=== PATIENT | female | born 1995 | race Caucasian/White ===

== ENCOUNTER 2023-11-09 12:48 | Inpatient (IN) | payer OTHER, SELFPAY ==
[2023-11-09 13:02] VITALS: BMI 21.3
[2023-11-09 13:04] VITALS: BP 124/81; PULSE 87; RESP 16; TEMP 36.9; O2SAT 98
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
--- NOTE | 2023-11-09 16:27 | PC.NURSE ---
This short story writer unable to complete med rec due to patient not having picked up medication since 04/2023 from [facility]. Pt had reported that she uses [facility], however, they report a further back roller picker than 04/2023.
[2023-11-09 20:00] VITALS: BP 134/83; PULSE 93; TEMP 36.8; O2SAT 98
[2023-11-09] MEDS: valACYclovir HCL 500 MG TABLET PO (20:59)
[2023-11-10 08:00] VITALS: BP 100/55; PULSE 65; RESP 18; TEMP 36.9; O2SAT 98
[2023-11-10 08:53] LABS: Estimated Average Glucose 97 mg/dL
[2023-11-10 09:06] LABS: Cholesterol 161 mg/dL (<200); HDL Cholesterol 48 mg/dL (>40); LDL Cholesterol Calculated 96 mg/dL (<100); Magnesium 1.9 mg/dL (1.6-2.6); Triglycerides 89 mg/dL (<150)
[2023-11-10] MEDS: valACYclovir HCL 500 MG TABLET PO ×2 (09:11→22:45)
[2023-11-10 09:17] LABS: Free T4 (Free Thyroxine) 0.97 ng/dL (0.71-1.85); Thyroid Stimulating Hormone 1.46 uIU/mL (0.32-4.0)
[2023-11-10 09:33] LABS: Folate 5.4 ng/mL (> or = 4.0); Vitamin B12 467 pg/mL (200-900)
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
[2023-11-10 20:00] VITALS: BP 124/71; PULSE 68; RESP 16; TEMP 36.8; O2SAT 99
[2023-11-11 08:00] VITALS: BP 97/60; PULSE 63; RESP 18; TEMP 36.9; O2SAT 98
[2023-11-11] MEDS: valACYclovir HCL 500 MG TABLET PO ×2 (08:40→21:51)
[2023-11-11] MEDS: hydrOXYzine HCL 25 MG TABLET PO (09:09)
--- NOTE | 2023-11-11 14:42 | HO.PSYCHPN ---
Subjective Subjective Date of Service: 11/11/23 Reason For Visit: PTSD, Anxiety, ADHD Subjective Notes: Conditional Voluntary Healthcare Proxy: No Guardianship: No Medical Problems Affecting Mental Status: No Interim History: Review of meds, treatment plan. Pt not wanting any medications at this time. Finds hydroxyzine helpful. Asking for a referral to a [facility] in [place] and assistance in application for disability services and community services connection. Medication Compliance: Yes Side effects from medications: No Attending Groups: Yes Review of Systems Acute medical concerns: No Medical Review of Systems: unchanged Review of Systems Review of Systems Yes all other systems are reviewed and are negative Mental Status Exam Mental Status Exam Patient Appearance: Appropriate Patient Orientation: Person, Place, Time and Situation Level of Consciousness: Alert Patient Behavior: Talkative and Good Eye Contact Mood Description: Depressed Affect Description: Flat Patient Cognition Impaired: No Ability to Follow Directions: Good Speech Pattern: Spontaneous Speech Memory Description: Episodic Impaired Hallucinations: None Delusions: Not Present Perceptual Disturbances: Depersonalization and Derealization Thought Process: Rumination Thought Content: positive for Circumstantial and positive for Perseveration Judgement: Fair Diagnostics Vital Signs (24Hr): Vital Signs - 24 hr 11/10/23 20:00 11/11/23 08:00 Temperature 98.2 F 98.4 F Pulse Rate 68 63 Respiratory Rate 16 18 Blood Pressure 124/71 97/60 Pulse Oximetry 99 98 Oxygen Delivery Method Room Air Room Air BMI result Body Mass Index 21.3 Labs Labs: Laboratory Results - last 48 hr 11/10/23 08:13 Estimat Average Glucose 97 Hemoglobin A1c % 5.0 Magnesium 1.9 Triglycerides 89 Cholesterol 161 LDL Cholesterol, Calc 96 HDL Cholesterol 48 Vitamin B12 467 Folate 5.4 TSH 1.46 Free T4 0.97 Medications Medications Current Medications Acetaminophen (Acetaminophen 325 Mg Tablet) 650 mg PO Q6H PRN PRN Reason: Headache/Pain Mild Scale (1-3) Al Hydroxide/Mg Hydroxide (Magnesium Hydrox/Alum Hydrox 30 Ml Oral.Susp) 30 ml PO Q6H PRN PRN Reason: Heartburn/Nausea Hydroxyzine HCl (Hydroxyzine Hcl 25 Mg Tablet) 25 mg PO Q6H PRN PRN Reason: Anxiety Last Admin: 11/11/23 09:09 Dose: 25 mg Magnesium Hydroxide (Milk Of Magnesia 30 Ml Oral.Susp) 30 ml PO DAILY PRN PRN Reason: Constipation Nicotine (Nicotine 21 Mg Patch.Td24) 21 mg TRANSDERMA DAILY PRN PRN Reason: nicotine cravings Nicotine Polacrilex (Nicotine Polacrilex 2 Mg Gum) 4 mg BUCCAL Q2H PRN PRN Reason: Nicotine Cravings Trazodone HCl (Trazodone Hcl 50 Mg Tablet) 50 mg PO BEDTIME MRX1 PRN PRN Reason: Insomnia Valacyclovir HCl (Valacyclovir Hcl 500 Mg Tablet) 500 mg PO BID POLO Stop: 11/12/23 20:59 Last Admin: 11/11/23 08:40 Dose: 500 mg Allergies Allergies Allergy/AdvReac Type Severity Reaction Status Date / Time No Known Allergies Allergy Unverified 12/22/19 19:08 [No Known Allergies*] Assessment & Plan Assessment & Plan (1) PTSD (post-traumatic stress disorder): Status: Acute Code(s): F43.10 - Post-traumatic stress disorder, unspecified (2) Mood disorder: Status: Acute Code(s): F39 - Unspecified mood [affective] disorder (3) Polysubstance use disorder: Status: Acute Code(s): F19.90 - Other psychoactive substance use, unspecified, uncomplicated Plan PTSD, Mood Disorder, Polysubstance Use Disorder. Plan: Admit, CV, 15 minute checks Full milieu therapy Collateral Contact Discharge planning 11/11/23: Discharge planning. Reason for continued inpatient stay Substantial Risk for: rapid decompensation Time Spent With Patient Time: Total time managing care of this patient today ____ minutes.
[2023-11-11 20:00] VITALS: BP 88/51; PULSE 70; RESP 16; TEMP 37.1; O2SAT 98
[2023-11-12 07:00] VITALS: BMI 21.2
[2023-11-12 08:00] VITALS: BP 101/57; PULSE 59; RESP 17; TEMP 36.1; O2SAT 99
[2023-11-12] MEDS: valACYclovir HCL 500 MG TABLET PO (08:41)
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
[2023-11-12 20:00] VITALS: BP 130/77; PULSE 73; TEMP 36.1; O2SAT 97
[2023-11-13 08:00] VITALS: BP 104/68; PULSE 62; RESP 16; TEMP 36.3; O2SAT 99
[2023-11-13] MEDS: hydrOXYzine HCL 25 MG TABLET PO (11:15)
[2023-11-13] MEDS: OLANZapine 5 MG TABLET PO ×2 (13:33→21:21)
--- NOTE | 2023-11-13 16:46 | HO.PSYCHPN ---
Subjective Subjective Date of Service: 11/13/23 Reason For Visit: PTSD, Anxiety, ADHD Subjective Notes: Conditional Voluntary Healthcare Proxy: No Guardianship: No Medical Problems Affecting Mental Status: No Interim History: Reporting anxiety to team. Today, asks for medication for anxiety. Olanzapine ordered, scheduled and prn. Pt accepted a trial dose from the team. Medication Compliance: Yes Side effects from medications: No Attending Groups: No Review of Systems Acute medical concerns: No Medical Review of Systems: unchanged Review of Systems Review of Systems Yes all other systems are reviewed and are negative Mental Status Exam Mental Status Exam Patient Appearance: Appropriate Patient Orientation: Person, Place, Time and Situation Level of Consciousness: Alert Patient Behavior: Talkative, Anxious and Good Eye Contact Mood Description: Depressed Affect Description: Flat Patient Cognition Impaired: No Ability to Follow Directions: Good Speech Pattern: Spontaneous Speech Memory Description: Episodic Impaired Hallucinations: None Delusions: Not Present Perceptual Disturbances: Depersonalization and Derealization Thought Process: Rumination Thought Content: positive for Circumstantial and positive for Perseveration Judgement: Fair Diagnostics Vital Signs (24Hr): Vital Signs - 24 hr 11/12/23 20:00 11/13/23 08:00 Temperature 97.0 F 97.3 F Pulse Rate 73 62 Respiratory Rate 16 Blood Pressure 130/77 104/68 Pulse Oximetry 97 99 Oxygen Delivery Method Room Air Room Air BMI result Body Mass Index 21.2 Medications Medications Current Medications Acetaminophen (Acetaminophen 325 Mg Tablet) 650 mg PO Q6H PRN PRN Reason: Headache/Pain Mild Scale (1-3) Al Hydroxide/Mg Hydroxide (Magnesium Hydrox/Alum Hydrox 30 Ml Oral.Susp) 30 ml PO Q6H PRN PRN Reason: Heartburn/Nausea Hydroxyzine HCl (Hydroxyzine Hcl 25 Mg Tablet) 25 mg PO Q6H PRN PRN Reason: Anxiety Last Admin: 11/13/23 11:15 Dose: 25 mg Magnesium Hydroxide (Milk Of Magnesia 30 Ml Oral.Susp) 30 ml PO DAILY PRN PRN Reason: Constipation Nicotine (Nicotine 21 Mg Patch.Td24) 21 mg TRANSDERMA DAILY PRN PRN Reason: nicotine cravings Nicotine Polacrilex (Nicotine Polacrilex 2 Mg Gum) 4 mg BUCCAL Q2H PRN PRN Reason: Nicotine Cravings Olanzapine (Olanzapine 5 Mg Tablet) 5 mg PO BID POLO Last Admin: 11/13/23 13:33 Dose: 5 mg Olanzapine (Olanzapine 5 Mg Tablet) 5 mg PO Q4H PRN PRN Reason: Anxiety Trazodone HCl (Trazodone Hcl 50 Mg Tablet) 50 mg PO BEDTIME MRX1 PRN PRN Reason: Insomnia Valacyclovir HCl (Valacyclovir Hcl 500 Mg Tablet) 500 mg PO BID POLO Allergies Allergies Allergy/AdvReac Type Severity Reaction Status Date / Time No Known Allergies Allergy Unverified 12/22/19 19:08 [No Known Allergies*] Assessment & Plan Assessment & Plan (1) PTSD (post-traumatic stress disorder): Status: Acute Code(s): F43.10 - Post-traumatic stress disorder, unspecified (2) Mood disorder: Status: Acute Code(s): F39 - Unspecified mood [affective] disorder (3) Polysubstance use disorder: Status: Acute Code(s): F19.90 - Other psychoactive substance use, unspecified, uncomplicated Plan PTSD, Mood Disorder, Polysubstance Use Disorder. Plan: Admit, CV, 15 minute checks Full milieu therapy Collateral Contact Discharge planning 11/11/23: Discharge planning. 11/12/23: Encourage treatment. 11/13/23: Olanzapine trial for anxiety Asking to discharge to a retirement Considering precipitants to admission, this may not be acceptable given a questionable level of risk Reason for continued inpatient stay Substantial Risk for: rapid decompensation Time Spent With Patient Time: Total time managing care of this patient today ____ minutes.
[2023-11-13 20:00] VITALS: BP 96/53; PULSE 75; RESP 16; TEMP 36.3; O2SAT 96
[2023-11-13] MEDS: valACYclovir HCL 500 MG TABLET PO (21:21)
[2023-11-14 08:00] VITALS: BP 82/51; PULSE 65; RESP 16; TEMP 36.2; O2SAT 97
[2023-11-14] MEDS: valACYclovir HCL 500 MG TABLET PO ×2 (08:36→21:16)
[2023-11-14] MEDS: OLANZapine 5 MG TABLET PO ×2 (08:36→21:16)
--- NOTE | 2023-11-14 10:14 | HO.PSYCHPN ---
Subjective Subjective Date of Service: 11/14/23 Reason For Visit: PTSD, Anxiety, ADHD Interim History: Anxiety medications are helping. I am feeling less overwhelmed. Reports she is feeling better. Denies SI/HI/AVH. Compliant with treatment. Social with peers and visible in the milieu. Review of Systems Review of Systems General: No fevers, malaise, unintentional weight loss HEENT: No blurred vision, diplopia. No sore throat, nasal congestion, rhinorrhea, sinus pain, ear pain Cardiovascular: No chest pain, palpitations, or leg edema Respiratory: No shortness of breath, wheezing, cough GI: No abdominal pain, nausea, vomiting, diarrhea, constipation, melena, hematochezia : No dysuria, hematuria, increased urinary frequency, decreased urinary output ELECTRONIC BENCH TECHNICIAN: +herpes lesion MSK: No myalgia, back pain Neuro: No headaches, weakness, paresthesias Skin: No rashes or lesions Yes all other systems are reviewed and are negative Mental Status Exam Mental Status Exam Patient Appearance: Appropriate Patient Orientation: Person, Place, Time and Situation Level of Consciousness: Alert Patient Behavior: Talkative, Anxious and Good Eye Contact Mood Description: Depressed Affect Description: Flat Patient Cognition Impaired: No Ability to Follow Directions: Good Speech Pattern: Spontaneous Speech Memory Description: Episodic Impaired Diagnostics Vital Signs (24Hr): Vital Signs - 24 hr 11/13/23 20:00 Temperature 97.3 F Pulse Rate 75 Respiratory Rate 16 Blood Pressure 96/53 L Pulse Oximetry 96 Oxygen Delivery Method Room Air BMI result Body Mass Index 21.2 Medications Medications Current Medications Acetaminophen (Acetaminophen 325 Mg Tablet) 650 mg PO Q6H PRN PRN Reason: Headache/Pain Mild Scale (1-3) Al Hydroxide/Mg Hydroxide (Magnesium Hydrox/Alum Hydrox 30 Ml Oral.Susp) 30 ml PO Q6H PRN PRN Reason: Heartburn/Nausea Hydroxyzine HCl (Hydroxyzine Hcl 25 Mg Tablet) 25 mg PO Q6H PRN PRN Reason: Anxiety Last Admin: 11/13/23 11:15 Dose: 25 mg Magnesium Hydroxide (Milk Of Magnesia 30 Ml Oral.Susp) 30 ml PO DAILY PRN PRN Reason: Constipation Nicotine (Nicotine 21 Mg Patch.Td24) 21 mg TRANSDERMA DAILY PRN PRN Reason: nicotine cravings Nicotine Polacrilex (Nicotine Polacrilex 2 Mg Gum) 4 mg BUCCAL Q2H PRN PRN Reason: Nicotine Cravings Olanzapine (Olanzapine 5 Mg Tablet) 5 mg PO BID [facility] Last Admin: 11/14/23 08:36 Dose: 5 mg Olanzapine (Olanzapine 5 Mg Tablet) 5 mg PO Q4H PRN PRN Reason: Anxiety Trazodone HCl (Trazodone Hcl 50 Mg Tablet) 50 mg PO BEDTIME MRX1 PRN PRN Reason: Insomnia Valacyclovir HCl (Valacyclovir Hcl 500 Mg Tablet) 500 mg PO BID [facility] Last Admin: 11/14/23 08:36 Dose: 500 mg Allergies Allergies Allergy/AdvReac Type Severity Reaction Status Date / Time No Known Allergies Allergy Unverified 12/22/19 19:08 [No Known Allergies*] Assessment & Plan Assessment & Plan (1) PTSD (post-traumatic stress disorder): Status: Acute Code(s): F43.10 - Post-traumatic stress disorder, unspecified (2) Mood disorder: Status: Acute Code(s): F39 - Unspecified mood [affective] disorder (3) Polysubstance use disorder: Status: Acute Code(s): F19.90 - Other psychoactive substance use, unspecified, uncomplicated Plan PTSD, Mood Disorder, Polysubstance Use Disorder. Plan: Admit, CV, 15 minute checks Full milieu therapy Collateral Contact Discharge planning 11/11/23: Discharge planning. 11/12/23: Encourage treatment. 11/13/23: Olanzapine trial for anxiety Asking to discharge to a [facility] Considering precipitants to admission, this may not be acceptable given a questionable level of risk 11/13: continue current management and treatment plan. Reason for continued inpatient stay Substantial Risk for: harm to others, inability to function and rapid decompensation Time Spent With Patient Time: Total time managing care of this patient today ____ minutes.
[2023-11-14] MEDS: Acetaminophen 325 MG TABLET 650 MG PO (17:48)
[2023-11-14 19:58] VITALS: BP 129/85; PULSE 88; RESP 14; TEMP 36.6; O2SAT 98
[2023-11-15 07:46] VITALS: BP 90/52; PULSE 58; RESP 16; TEMP 36.3; O2SAT 98
[2023-11-15 08:00] VITALS: BP 90/52; PULSE 58; RESP 16; TEMP 36.3
[2023-11-15] MEDS: OLANZapine 5 MG TABLET PO ×2 (08:48→22:17)
[2023-11-15] MEDS: valACYclovir HCL 500 MG TABLET PO ×2 (08:49→22:17)
--- NOTE | 2023-11-15 10:25 | P.PNPSI_ITS ---
Subjective Subjective Date of Service: 11/15/23 Reason For Visit: PTSD, Anxiety, ADHD Interim History: Anxiety medications are helping. When I take them I don't have racing thoughts and they go down. Complaining of waking with a stiff neck and upper back. Slept wrong. Left side. Heat helps. Wondering about a Lidocaine patch at night if pain continues. Will order. Reports she is feeling better. Denies SI/HI/AVH. Compliant with treatment. Social with peers and visible in the milieu. Review of Systems Review of Systems General: No fevers, malaise, unintentional weight loss HEENT: No blurred vision, diplopia. No sore throat, nasal congestion, rhinorrhea, sinus pain, ear pain Cardiovascular: No chest pain, palpitations, or leg edema Respiratory: No shortness of breath, wheezing, cough GI: No abdominal pain, nausea, vomiting, diarrhea, constipation, melena, hematochezia : No dysuria, hematuria, increased urinary frequency, decreased urinary output FITNESS AND WELLNESS INSTRUCTOR: +herpes lesion MSK: No myalgia, back pain Neuro: No headaches, weakness, paresthesias Skin: No rashes or lesions Yes all other systems are reviewed and are negative Mental Status Exam Mental Status Exam Patient Appearance: Appropriate Patient Orientation: Person, Place, Time and Situation Level of Consciousness: Alert Patient Behavior: Talkative, Anxious and Good Eye Contact Mood Description: Depressed Affect Description: Flat Patient Cognition Impaired: No Ability to Follow Directions: Good Speech Pattern: Spontaneous Speech Memory Description: Episodic Impaired Diagnostics Vital Signs (24Hr): Vital Signs - 24 hr 11/14/23 19:58 11/15/23 07:46 Temperature 97.8 F 97.4 F Pulse Rate 88 58 Respiratory Rate 14 16 Blood Pressure 129/85 90/52 L Pulse Oximetry 98 98 Oxygen Delivery Method Room Air Room Air BMI result Body Mass Index 21.2 Medications Medications Current Medications Acetaminophen (Acetaminophen 325 Mg Tablet) 650 mg PO Q6H PRN PRN Reason: Headache/Pain Mild Scale (1-3) Last Admin: 11/14/23 17:48 Dose: 650 mg Al Hydroxide/Mg Hydroxide (Magnesium Hydrox/Alum Hydrox 30 Ml Oral.Susp) 30 ml PO Q6H PRN PRN Reason: Heartburn/Nausea Hydroxyzine HCl (Hydroxyzine Hcl 25 Mg Tablet) 25 mg PO Q6H PRN PRN Reason: Anxiety Last Admin: 11/13/23 11:15 Dose: 25 mg Magnesium Hydroxide (Milk Of Magnesia 30 Ml Oral.Susp) 30 ml PO DAILY PRN PRN Reason: Constipation Nicotine (Nicotine 21 Mg Patch.Td24) 21 mg TRANSDERMA DAILY PRN PRN Reason: nicotine cravings Nicotine Polacrilex (Nicotine Polacrilex 2 Mg Gum) 4 mg BUCCAL Q2H PRN PRN Reason: Nicotine Cravings Olanzapine (Olanzapine 5 Mg Tablet) 5 mg PO BID [facility] Last Admin: 11/15/23 08:48 Dose: 5 mg Olanzapine (Olanzapine 5 Mg Tablet) 5 mg PO Q4H PRN PRN Reason: Anxiety Trazodone HCl (Trazodone Hcl 50 Mg Tablet) 50 mg PO BEDTIME MRX1 PRN PRN Reason: Insomnia Valacyclovir HCl (Valacyclovir Hcl 500 Mg Tablet) 500 mg PO BID [facility] Last Admin: 11/15/23 08:49 Dose: 500 mg Allergies Allergies Allergy/AdvReac Type Severity Reaction Status Date / Time No Known Allergies Allergy Unverified 12/22/19 19:08 [No Known Allergies*] Assessment & Plan Assessment & Plan (1) PTSD (post-traumatic stress disorder): Status: Acute Code(s): F43.10 - Post-traumatic stress disorder, unspecified (2) Mood disorder: Status: Acute Code(s): F39 - Unspecified mood [affective] disorder (3) Polysubstance use disorder: Status: Acute Code(s): F19.90 - Other psychoactive substance use, unspecified, uncomplicated Plan PTSD, Mood Disorder, Polysubstance Use Disorder. Plan: Admit, CV, 15 minute checks Full milieu therapy Collateral Contact Discharge planning 11/11/23: Discharge planning. 11/12/23: Encourage treatment. 11/13/23: Olanzapine trial for anxiety Asking to discharge to a [facility] Considering precipitants to admission, this may not be acceptable given a questionable level of risk 11/13: continue current management and treatment plan. 11/14: Lidocaine patch to neck. continue current management and treatment plan. Reason for continued inpatient stay Substantial Risk for: inability to function and rapid decompensation Time Spent With Patient Time: Total time managing care of this patient today ____ minutes.
[2023-11-15] MEDS: hydrOXYzine HCL 25 MG TABLET PO (14:48)
[2023-11-15 20:00] VITALS: BP 99/56; PULSE 64; RESP 16; TEMP 36.2; O2SAT 99
[2023-11-15] MEDS: Lidocaine 4 % Patch ADH..PATCH 1 PATCH TRANSDERMA (21:01)
[2023-11-16 08:00] VITALS: BP 98/57; PULSE 70; RESP 16; TEMP 36.9; O2SAT 97
[2023-11-16] MEDS: hydrOXYzine HCL 25 MG TABLET PO (08:52)
[2023-11-16] MEDS: OLANZapine 5 MG TABLET PO (08:52)
[2023-11-16] MEDS: valACYclovir HCL 500 MG TABLET PO (08:52)
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
== END 2023-11-16 11:57 | disposition home or self-care (01) | DRG 755 ==
PROVIDERS: Admitting Provider Clinical Nurse Specialist Psychiatric/Mental Health, Adult; PCP Nurse Practitioner; Visit Provider Clinical Nurse Specialist Psychiatric/Mental Health, Adult
DX: F43.10 Post-traumatic stress disorder, unspecified (principal); F19.90 Other psychoactive substance use, unspecified, uncomplicated; F39 Unspecified mood [affective] disorder; Z59.02 Unsheltered homelessness; Z87.891 Personal history of nicotine dependence
CPT/HCPCS: 36415; 80061; 82607; 82746; 83036; 83735; 84439; 84443

== ENCOUNTER → 2023-11-09 12:48 | Outpatient (BNV) | payer OTHER, SELFPAY | PROVIDERS: Admitting Provider Clinical Nurse Specialist Psychiatric/Mental Health, Adult; PCP Nurse Practitioner; Visit Provider Physician Assistant | DX: Z02.2 Encounter for examination for admission to residential institution (principal) | CPT/HCPCS: 99429 ==

== ENCOUNTER → 2023-11-09 12:48 | Outpatient (BNV) | payer OTHER, SELFPAY | PROVIDERS: Admitting Provider Clinical Nurse Specialist Psychiatric/Mental Health, Adult; PCP Nurse Practitioner; Visit Provider Clinical Nurse Specialist Psychiatric/Mental Health, Adult | DX: F39 Unspecified mood [affective] disorder (principal); F43.11 Post-traumatic stress disorder, acute; F19.90 Other psychoactive substance use, unspecified, uncomplicated | CPT/HCPCS: 99231; 99232 ==